=== PATIENT | female | born 1975 | race Caucasian/White ===

== ENCOUNTER 2018-03-06 19:05 | Emergency (ER) | payer SELFPAY ==
--- NOTE | 2018-03-06 19:17 | EDPHY ---
H & P Stated Complaint: pt thrown from/stepped on by horse, c/o R leg/LUE, R groin discomfort Source: Patient Exam Limitations: No limitations - Personal History Current Tetanus Diphtheria and Acellular Pertussis (TDAP): Yes - Medical/Surgical History Hx Asthma: No Hx Chronic Respiratory Disease: No Hx Diabetes: No Hx Cardiac Disease: No Hx Renal Disease: No Hx Cirrhosis: No Hx Alcoholism: No Hx HIV/AIDS: No Hx Splenectomy or Spleen Trauma: No Other PMH: R wrist surg - Social History Smoking Status: Never smoked Time Seen by Provider: 03/06/18 19:17 HPI/ROS: CHIEF COMPLAINT: Trampled by a horse, right leg injury HISTORY OF PRESENT ILLNESS: The patient presents to the ED after she was trampled by her horse. She sustained a laceration to her right anterior tibia. She was ambulatory after the accident. The patient did not strike her head or lose consciousness. She has no complaints of headache, neck pain, chest pain , difficulty breathing or abdominal pain. The patient reports her tetanus shot is up-to-date. She denies any acute numbness or weakness. She takes no regular medications and is otherwise healthy. REVIEW OF SYSTEMS: A comprehensive 10 point review of systems is otherwise negative aside from elements mentioned in the history of present illness. (Jonathan Sarkar) - Physical Exam Exam: General Appearance: Alert, no distress Head: Atraumatic Eyes: Pupils equal, round, reactive ENT, Mouth: No hemotympanum, no oral trauma Neck: Nontender, trachea midline Respiratory: No chest wall tender, subcutaneous air, lungs clear bilaterally Cardiovascular: Regular rate and rhythm Abdomen: Abdomen is soft and nontender, pelvis stable Skin: 8 cm stellate laceration noted to the anterior aspect of the right tibia , superficial skin abrasions Back: No midline T/L/S pain Extremities: Nontender, full range of motion Neurological: A&Ox3, normal motor function, normal sensory exam, GCS 15 (Jonathan Sarkar) Constitutional: Initial Vital Signs Temperature (C) 97.9 F 03/06/18 19:10 Heart Rate 63 03/06/18 19:10 Respiratory Rate 18 03/06/18 19:10 Blood Pressure 127/84 H 03/06/18 19:10 O2 Sat (%) 97 03/06/18 19:10 O2 Delivery Mode Room Air Allergies/Adverse Reactions: No Known Allergies Allergy (Verified 03/06/18 19:14) Home Medications: Medication Instructions Recorded Sertraline HCl 03/06/18 Medical Decision Making - Diagnostics Imaging Results: Imaging Impressions Tibia/Fibula X-Ray 03/06/18 19:22 Impression: No fracture of the right tibia or fibula. Procedures: My involvement the care this patient is solely for procedure. Please see the note of the attending physician for all other aspects of care. PROCEDURE: Laceration repair Consent: Verbal Location: Right anterior barraza Length of repair: 5 cm Complexity: Complex Layer involvement: 2 layer Anesthesia: Local Irrigation: Extensive Debridement: None Procedure description: Following good anesthesia, the wound was copiously irrigated. Wound bed was explored with a sterile glove, and there is no foreign body noted. Wound borders were approximated well with good hemostasis. Tolerated well without complication. Suture/Staple material: Subcutaneous layer: 4-0 Vicryl, 6 running sutures. Cutaneous layer: 4-0 Prolene, 1 simple interrupted suture and 5 horizontal mattresses Wound care: Routine as discussed Suture/Staple removal: 7-10 Days (Girish García) ED Course/Re-evaluation: The patient was evaluated in the emergency department. She has trauma noted to her right lower leg. There is no evidence of an obvious fracture. She does have a laceration which was repaired by the physician assistant portfolio manager under my supervision. The patient did undergo serial examinations. I have cleared her cervical spine via nexus criteria. Her GCS is 15. She has no clinical evidence of an intrathoracic or intra-abdominal injury. Patient will be advised to return to the emergency department in 14 days for suture removal. She is given customary aftercare instructions. Plan to use Tylenol and ibuprofen as needed for pain. (Jonathan Sarkar) Differential Diagnosis: Differential diagnosis considered includes extremity fracture, neurovascular injury, laceration, compartment syndrome (Jonathan Sarkar) Departure - Departure Disposition: Home, Routine, Self-Care Clinical Impression: Contusion of right leg, Laceration of right lower leg Condition: Good Instructions: Care For Your Stitches (ED), Contusion in Adults (ED) Additional Instructions: 1. Tylenol and ibuprofen as needed for pain. 2. Return to the ED in 14 days for suture removal. 3. Follow up with your primary care provider as needed. 4. Please ice areas of pain and swelling 20-30 minutes at a time 4 to 5 times a day for the next several days. Referrals: NONE *PRIMARY CARE P,. [Primary Care Provider] - As per Instructions
[2018-03-06 21:04] VITALS: BP 116/79
== END 2018-03-06 21:03 | disposition home or self-care (01) ==
PROC: 0HQKXZZ Repair Right Lower Leg Skin, External Approach (ICD-10-PCS; principal; 2018-03-06)
DX: S81.811A Laceration without foreign body, right lower leg, initial encounter (principal); W55.12XA Struck by horse, initial encounter